=== PATIENT | female | born 1950 | race Caucasian/White ===

== ENCOUNTER → 2020-04-08 | Outpatient (CLI) | payer OTHER ==
[~2020-04-08] MED LIST: CALCIUM 500 MG1 EAC2 PO; FLONASE 0.05%50 MCG NARES; IRON18 M1 PO; LISINOPRIL-HCT1 EACH PO; MELOXICAM7.5 MG PO; NEURONTIN300 MG PO; SINGULAIR 10 MG10 MG PO; VITAMIN C500 M2 PO; ZOCOR20 MG PO
== END ==
LOC: LAB 09:13
PROVIDERS: ATTEND Orthopaedic Surgery Sports Medicine
DX: Z01.812 Encounter for preprocedural laboratory examination (principal); Z20.828 Contact with and (suspected) exposure to other viral communicable diseases

== ENCOUNTER 2020-04-13 06:41 | Inpatient (IN) | payer OTHER ==
[2020-04-08 11:16] LABS: URINE BILIRUBIN NEGATIVE (Negative); URINE BLOOD NEGATIVE (Negative); URINE CLARITY CLEAR; URINE COLOR YELLOW; URINE GLUCOSE-RANDOM* NEGATIVE (Negative); URINE KETONES NEGATIVE (Negative); URINE LEUKOCYTES-REFLEX NEGATIVE (Negative); URINE NITRITE-REFLEX NEGATIVE (Negative); URINE PROTEIN (DIPSTICK) NEGATIVE (Negative); URINE SPECIFIC GRAVITY <= 1.005 (1.005-1.035); URINE UROBILINOGEN 0.2 E.U./dl (0.2-1.0)
[2020-04-08 11:27] LABS: PROTIME 10.5 Seconds (9.3-11.4)
--- NOTE | 2020-04-08 12:45 | EKG ---
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: Paolo LITTLE : 1950 Requested By: Santos Estevez Order Number: [id number] MD: Fran Burciaga Measurements Intervals [place] Rate: 65 P: 59 [place]: 200 QRS: 69 QRSD: 79 T: 74 QT: 396 QTc: 412 Interpretive Statements Sinus rhythm Low voltage, precordial leads Compared to ECG 06/15/2008 16:18:35 No significant changes Electronically Signed On 04-08-2020 12:45:23 HEEL SCORER by Fran Burciaga [email or web address] <ELECTRONICALLY SIGNED> By: Fran Burciaga MD, [facility] 04/08/20 1245 1100 Vasyl Burciaga MD FACJordy /EPI
[~2020-04-13] VITALS: Ht 167.6 cm; Wt 63.8 kg
[2020-04-13 08:00] VITALS: BP 114/68
[2020-04-13 14:00] VITALS: BP 108/59
--- NOTE | 2020-04-13 15:09 | NUR ---
ASSESSMENT: CM REVIEWED CHART. PT IS S/P RIGHT TOTAL SHOULDER REPLACEMENT. PT REPORTS LIVING WITH HER IN A HOUSE WITH NO STEPS TO ENTER OR ONCE INSIDE. PT REPORTS SHE IS NORMALLY FULLY INDEPENDENT WITH ADLS AND AMBULATION BUT DOES HAVE DME AT HOME FROM PAST SURGERY INCLUDING A CANE AND WALKER. PT REPORTS NO HX OF HH IN THE PAST OR SNF. CM DISCUSSED ROLE. PT IS HOPEFUL SHE WILL BE ABLE TO RETURN HOME WITH NO NEEDS AT DISCHARGE. CM WILL CONTINUE TO FOLLOW TO ASSIST NEEDED.
[2020-04-13 16:15] VITALS: BP 108/59
[2020-04-13] MEDS ORDERED: COLACE100 MG PO (16:15)
[2020-04-13] MEDS ORDERED: MIRALAX17 GM PO (16:15)
[2020-04-13 20:05] VITALS: BP 98/54
--- NOTE | 2020-04-13 21:23 | NUR ---
PATIENT ADMITTED TO ROOM 439, ALERT XS 4.V.S. 97.6 20 68 108/59 O2 SAT 96 % RA HEIGHT 5'6" WEIGHT 140.6 ADMISSION PAPERWORK COMPLETED. HAS SCD AND [place] L[place]ERS. FLUIDS AND ABT INFUSING ORDERED. PT HAD RIGHT TOTAL SHOULDER REPLACEMENT. PT REGULAR DIET.
--- NOTE | 2020-04-14 04:00 | NUR ---
pt s/p right shoulder repair. Sling in place with polar pack. No pain thhrough night. Oxy given this morning just to get ahead with pain. Pt voiding adequately per bedpan. Denies any nausea or vomiting. Afebrile.No further concerns.
[2020-04-14 04:35] VITALS: BP 105/63
[2020-04-14 05:44] LABS: ABSOLUTE NEUTROPHILS 5.2 thou/uL (1.4-8.2); BASOPHILS 0.2 % (0.0-2.0); EOSINOPHILS 0.2 % (0.0-3.0); HEMATOCRIT 32.3 % (37.0-47.0); HEMOGLOBIN 10.9 gm/dL (12.0-15.0); LYMPHOCYTES 12.4 % (24.0-44.0); MCH 29.1 pg (26.0-34.0); MCHC 33.6 g/dL (28.0-37.0); MCV 86.5 fL (80.0-100.0); PLATELET COUNT 176 thou/uL (150-400); POLYS 78.2 % (36.0-66.0); RBC 3.74 mil/uL (4.20-5.00); RDW 13.8 % (10.5-14.5); WBC 6.7 thou/uL (4.0-11.0)
[2020-04-14 06:11] LABS: CALCIUM 9.1 mg/dL (8.5-10.1); CREATININE 0.9 mg/dL (0.6-1.0); POTASSIUM 3.5 mmol/L (3.5-5.1)
--- NOTE | 2020-04-14 08:57 | NUR ---
Nutrition Note: RD received consult r/t pt having difficulty eating. Pt visited this am while eating breakfast (biscuits and gravy, sausage, orange juice). Pt states she has no difficulty eating. Reports her appetite is doing very well and notes no recent unintentional wt loss. Pt states she does enjoy snacking but chooses to snack on plain georgian yogurt with walnuts and blueberries. Pt voices no nutritional questions/concerns at this time. Pt is low nutritional risk.
--- NOTE | 2020-04-14 09:02 | NUR ---
WOUND CONSULT; CUNSULTED TO ASSESS THIS PATIENT WHICH WAS FOUND IN ERROR. THE PATIENTS RN TODAY CAREN STATED SHE HAS NO WOUNDS. I WILL CANCELL THIS ORDER.
[2020-04-14 09:47] VITALS: BP 116/59
--- NOTE | 2020-04-14 10:25 | NUR ---
Assumed care of pt at 0700. Pt a&ox4. Pain controlled with prn pain meds. IVF and IV antibiotics infusing. Shoulder sling in place. Polar care in place. Pt worked with OT and physical therapy. Possible d/c back to home. Call light within reach. Will continue to monitor.
[2020-04-14 13:44] VITALS: BP 116/59
--- NOTE | 2020-04-14 13:55 | NUR ---
ON-GOING ASSESSMENT: CM REVIEWED CHART AND SPOKE WITH BEDSIDE RN WHO REPORTS PHYSICIAN HAS ROUNDED AND PT WILL DISCHARGE TODAY. CM DIRECTOR AWARE. WILL DRAW OPERATOR PATIENT AT DISCHARGE.
--- NOTE | 2020-04-15 09:56 | O ---
[facility] [place] [address] OPERATIVE REPORT Name: GORAN JIMENEZ Room #: 439-P [facility] IN M.R.#: [id number] Admission: 04/13/20 Attend Phys: Santos Izaguirre Discharge: 04/14/20 Date of : 54 Report #: [id number] THIS REPORT FOR: cc: Emir Lloyd James L. DO VanDenBerghe, Gregory R. MD ~ DATE OF SERVICE: 04/13/2020 PREOPERATIVE DIAGNOSES: Right shoulder pain, osteoarthritis, rotator cuff tear, biceps tendinopathy. POSTOPERATIVE DIAGNOSES: Right shoulder pain, osteoarthritis, rotator cuff tear, biceps tendinopathy. PROCEDURE PERFORMED: Right reverse total shoulder arthroplasty with open biceps tenodesis. SURGEON: Santos Estevez MD CELLOPHANE CASTING MACHINE REPAIRER: Nathalie Handley PA-C ANESTHESIA: General. FLUIDS: 650 mL crystalloid. ESTIMATED BLOOD LOSS: Approximately 50 mL. IMPLANTS UTILIZED: DePuy Delta Xtend 38+ or size 38+2 standard glenosphere with a size 8 GUTIÉRREZ-coated stem and standard Metaglene was a Global Unite stem. DESCRIPTION OF PROCEDURE: After proper identification of the patient and operative site in preoperative holding area, the operative site was signed by myself. Prophylactic antibiotics given. The patient elected to receive an ultrasound-guided nerve block after reviewing the risks, benefits, alternatives and potential complications with anesthesia. After a satisfactory block, the patient was brought back to the operative suite after induction of satisfactory general anesthesia. The patient was carefully positioned in the beach chair with head of bed elevated approximately 40 degrees. Head and neck were carefully positioned. The right shoulder was sterilely prepped and draped in the usual manner. Final skin draping was with Ioban. A [employer] limb positioning system was utilized throughout the entire procedure. Anterior deltopectoral approach was planned. Skin was incised sharply. Full-thickness skin flaps were developed. Cephalic vein was identified and retracted laterally. Subdeltoid space was carefully opened. A small amount of bursal-sided adhesions were appreciated. A Erinn deltoid retractor was used to [address] [address] OPERATIVE REPORT Name: GORAN JIMENEZ Room #: 439-P DIS IN M.R.#: [id number] Admission: 04/13/20 Attend Phys: Santos Izaguirre Discharge: 04/14/20 Date of : 54 Report #: [id number] retract the soft tissues. Tenosynovitis and partial thickness tearing of the long head of the biceps tendon were noted, spurring within the bicipital groove was noted as well. Upper portion of the pectoralis major was released and subsequently repaired at the end of the procedure and the long head of the biceps tenodesis was performed in the undersurface of the pectoralis major. Free end of this was followed proximally. The subscapularis remained intact and was elevated in a peel type manner. There was a supraspinatus tear extending back into the infraspinatus and advanced degenerative changes were noted on both sides of the joint. At this point, using the humeral cutting guide, the intramedullary reaming was performed up to a size 8 stem, a 9 reamer was utilized and it had very good cortical contact to the point that a 10 reamer could not be utilized and would be too tight for intramedullary canal dimensions with the cutting jig appropriately placed. The humeral head osteotomy was performed in approximately 25 degrees of retroversion, which matched her zuni version. Peripheral osteophytes were removed. Protection plate was then applied. At this point, the anterior capsule was bluntly released and excised from the subscapularis fibers. The axillary nerve had been identified and protected throughout the entire procedure. The joint was carefully distracted with lamina addiction counselor, the labrum and biceps tendon were excised circumferentially. Inferior capsule was released directly off the glenoid as well as a small portion of the triceps insertion. This allowed for excellent visualization of the glenoid. The axillary nerve was again identified and protected throughout the entire procedure. Metaglene guide pin and guide were inserted and carefully positioned. Guide pin was advanced into the glenoid. Position was verified. Glenoid face was reamed. Denis reamer was utilized followed by the step drill and the excess soft tissue was removed. Step drill revealed a contained central peg hole, any bone debris was carefully irrigated and removed and a standard Metaglene was carefully impacted into position, it had excellent fixation. Next, the proximal aspect of the humeral metaphysis was carefully reamed for the epiphyseal component of the humerus and a size 1 epiphyseal component was chosen. The joint soft tissues were tightened enough that a standard 38+2 lateralized glenosphere provided the best fit and stability. The eccentric glenosphere was concerned that this would bring her joint center ____ inferior and would cause excessive tightness on the soft tissues. Therefore, the above noted glenosphere was positioned over a guidewire. The central locking screw was rotated counterclockwise until an audible click had been noted. The glenosphere was fully advanced. It was then tightened by hand, impacted and tightened, three additional times until it was fully seated. It was stable, well positioned. At this point, a size 8 Global Unite trial was utilized with a +3 liner. This provided the best overall fit and recreation of the anatomy. A +6 liner was too tight to utilize. Trial implants were removed. The joint was again thoroughly irrigated with antibiotic irrigant through drill holes were placed in the anterior cortex of the humerus where #2 FiberWire was passed. The stem was assembled on the back table. It was impacted into position with the inferior 2 sutures being wrapped around the [facility] [address] [place] [address] OPERATIVE REPORT Name: SHARYNGORAN ALMANZAR Room #: 439-P DIS IN M.R.#: [id number] Admission: 04/13/20 Attend Phys: Santos Izaguirre Discharge: 04/14/20 Date of : 54 Report #: [id number] stem. Stem had excellent rotational stability, and the trial implants were again utilized and a +3 polyethylene humeral cup was impacted into position, it was well seated. The joint was reduced. Soft tissues were under the appropriate tension. The axillary nerve was intact. The joint was again thoroughly irrigated with antibiotic irrigant. Subscapularis was repaired with modified Lex-Sung technique with three #2 FiberWires. 1 g of vancomycin powder was utilized, half at deep, half at more superficial. Deltopectoral interval was closed with 0 Vicryl, 2-0 Vicryl for the subcutaneous tissues, final skin closure was with running subcuticular 3-0 Monocryl stitch as well as Dermabond. Sterile dressing was applied as well as a sling and abduction pillow. The patient was awakened and transferred to the recovery room in stable condition. A qualified banking assistant utilized throughout the entire procedure to aid in patient limb positioning, visualization of the arthroscope, visualization and retraction of soft tissues, instrument passage, closure and sling and dressing application. <ELECTRONICALLY SIGNED> By: Santos Estevez MD 04/15/20 0956 1049 [id number] Santos Estevez MD /nt
== END 2020-04-14 15:38 | disposition home or self-care (01) | DRG 483 ==
LOC: TBA 06:41 → PRE 08:53 → 4S 13:03
PROVIDERS: Physician Assistant Surgical; ADMIT Orthopaedic Surgery Sports Medicine; ATTEND Orthopaedic Surgery Sports Medicine
PROC: 0RRJ00Z Replacement of Right Shoulder Joint with Reverse Ball and Socket Synthetic Substitute, Open Approach (ICD-10-PCS; principal; 2020-04-13)
PROC: 0LS30ZZ Reposition Right Upper Arm Tendon, Open Approach (ICD-10-PCS; 2020-04-13)
DX: M19.011 Primary osteoarthritis, right shoulder (principal); I10 Essential (primary) hypertension; Z96.641 Presence of right artificial hip joint; M75.121 Complete rotator cuff tear or rupture of right shoulder, not specified as traumatic; E78.5 Hyperlipidemia, unspecified; Z88.1 Allergy status to other antibiotic agents; Z88.0 Allergy status to penicillin; Z88.8 Allergy status to other drugs, medicaments and biological substances; Z79.899 Other long term (current) drug therapy; Z82.49 Family history of ischemic heart disease and other diseases of the circulatory system; Z83.3 Family history of diabetes mellitus; Z82.61 Family history of arthritis; Z80.0 Family history of malignant neoplasm of digestive organs; Z84.89 Family history of other specified conditions
CPT/HCPCS: 10102; 50010; 50101; 50172; 50386; 50417; 50697; 50733; 50935; 51320; 52001; 52138; 52256; 53000; 53078; 54118; 56524; 56525; 56526; 56530; 57095; 57103; 57423; 57468; 57470; 57471; 57472; 57473; 57474; 57989; 58152; 58181; 62110; 62900; 65060; 70005